=== PATIENT | female | born 1945 | race Caucasian/White ===

== ENCOUNTER → 2018-12-24 | Outpatient (CLI) | payer MEDICARE, OTHER ==
[~2018-12-24] MED LIST: ADV250/50 INH; ESOM40CA42 PO; FLUT1DIS28 IH; GAB300 PO; HYDR-4225 PO; IRON18TA2 PO; LISI-362 PO; LOR5 PO; LOR5/325 PO; METF-450 PO; MON4 PO; MONT10TA PO; OMEP40CA48 PO; ONDA4TAB PO; OXYC-865 PO; PER PO; ROPI0.5T25 PO; SIMV-49 PO; SUCR1TAB85 PO; VAL500 PO; WHEE1EAC19 MC
== END ==
LOC: RESP 07:18
PROVIDERS: ATTEND Family Medicine
DX: J98.4 Other disorders of lung (principal)
CPT/HCPCS: 94060; 94726; 94729

== ENCOUNTER → 2018-12-30 | Outpatient (CLI) | payer MEDICARE, OTHER ==
[~2018-12-30] MED LIST changes: +BARIUM SULFATE 176 GM BTL PO ONE; +BARIUM SULFATE 340 GM POWD ONE
--- NOTE | 2018-12-30 10:49 | RADIOLOGY IMAGING REPORT ---
FACILITY: [facility] PATIENT NAME: Renetta Clifton : 1945 MR: [id number] V: [id number] EXAM DATE: ORDERING PHYSICIAN: JOHN BOOTH TECHNOLOGIST: [place] [facility] [place] Renetta Clifton : 1945 Visit/Account:[id number] Date of Sevice: 12/30/2018 EXAMINATION: Upper GI HISTORY: Chronic sinusitis, cough, GERD. COMPARISON: CT abdomen and pelvis from 12/11/2015. TECHNIQUE: Thick and thin liquid barium was given orally and multiple fluoroscopic images were obtain ed. FLUOROSCOPY TIME: 1.8 minutes. DOSE: DAP was 1006.82 microGy*m2. FINDINGS: [employer]st image demonstrates levoscoliosis and degenerative changes of the lumbar spine. Bowel gas is pr esent in nondistended loops of small and large bowel with a moderate amount of stool in the colon. Peristalsis: Normal. Esophagus: Normal in contour and caliber without irregularity. Reflux: There is a large amount of reflux intermittently throughout the examination, with a thick col umn of barium to the upper esophagus. Barium tablet: A 13 mm Barium tablet was given which passed without problem. Stomach: There is moderate to large sliding hiatal hernia. Otherwise normal in contour and axis. No rugal fold thickening. Duodenum: Duodenal bulb is normal. Normally positioned ligament of Treitz. Small duodenal diverticu lum from the 3rd portion of the duodenum. IMPRESSION: 1. Moderate to large sliding hiatal hernia. 2. Large amount of gastroesophageal reflux to the upper esophagus. 3. Small duodenal diverticulum. Report Dictated By: Mago Wellington MD at 12/30/2018 10:40 AM Report E-Signed By: Mago Wellington MD at 12/30/2018 10:45 AM WSN:AMICIVN
--- NOTE | 2018-12-30 10:55 | RADIOLOGY IMAGING REPORT ---
FACILITY: [facility] [place] PATIENT NAME: Renetta Clifton : 1945 MR: [id number] V: [id number] EXAM DATE: ORDERING PHYSICIAN: JOHN BOOTH TECHNOLOGIST: Location: [facility] Patient: Renetta Clifton : 1945 Visit/Account:[id number] Date of Sevice: 12/30/2018 EXAMINATION: CT sinus without IV contrast HISTORY: Chronic sinusitis. COMPARISON: None. TECHNIQUE: Contiguous axial images were obtained through the paranasal sinuses without intravenous c ontrast administration. Coronal and sagittal reformatted images were obtained from the axial source d pablo. One of the following dose optimization techniques was utilized in the performance of this exam: Autom ated exposure control; adjustment of the mA and/or kV according to the patient's size; or use of an i terative reconstruction technique. Specific details can be referenced in the facility's radiology C T exam operational policy. FINDINGS: Maxillary sinuses: Minimal mucosal thickening in the bilateral inferior maxillary sinuses. Frontal sinuses: Negative. Ethmoid air cells: Minimal mucosal thickening in the bilateral ethmoid air cells. Sphenoid sinuses: The left sphenoid sinus is larger than the right which is a normal variant. The sp henoid sinuses are clear. Ostiomeatal units: Patent. Nasal septum/nasal cavity: Mild nasal septal deviation to the left with a small bone spur projecting laterally. No significant narrowing of the nasal cavity. 1.5 cm uncomplicated right julianna bullosa. Orbits: Negative. Visualized intracranial contents/soft tissues: Negative. TMJs: Negative. IMPRESSION: 1. Mild nonobstructive inflammation of the bilateral ethmoid air cells and maxillary sinuses. 2. Nasal septal deviation to the left with a bone spur projecting laterally, without significant jesus rowing of the nasal cavity. 3. 1.5 cm uncomplicated right julianna bullosa. Report Dictated By: Mago Wellington MD at 12/30/2018 10:48 AM Report E-Signed By: Mago Wellington MD at 12/30/2018 10:51 AM WSN:AMICIVN
== END ==
LOC: CT 00:43
PROVIDERS: ATTEND Family Medicine
DX: J34.2 Deviated nasal septum (principal); J34.89 Other specified disorders of nose and nasal sinuses; K21.9 Gastro-esophageal reflux disease without esophagitis; K44.9 Diaphragmatic hernia without obstruction or gangrene; K57.10 Diverticulosis of small intestine without perforation or abscess without bleeding
CPT/HCPCS: 70486; 74240

== ENCOUNTER 2019-04-23 09:22 | Emergency (ER) | payer MEDICARE, OTHER ==
[~2019-04-23 09:22] MED LIST changes: -BARIUM SULFATE 176 GM BTL PO ONE; -BARIUM SULFATE 340 GM POWD ONE
--- NOTE | 2019-04-23 09:24 | ER Report ---
History and Physical Time Seen By MD: 09:20 HPI/ROS CHIEF COMPLAINT: Back pain postop HISTORY OF PRESENT ILLNESS: Patient is a 73-year-old female here with complaints of mid thoracic back pain which is been present since her hiatal hernia repair surgery in February acutely worsening over the past 10 days. Patient reports that the pain is constant, worse on the left side that wraps around to the right as well. Patient reports that [id number] analgesics have not been alleviating her pain. Patient is afebrile, hemodynamically stable at time of evaluation. REVIEW OF SYSTEMS: Constitutional: No fever, no chills. Eyes: No discharge. ENT: No sore throat. Cardiovascular: No chest pain, no palpitations. Respiratory: No cough, no shortness of breath. Gastrointestinal: No abdominal pain, no vomiting. Genitourinary: No hematuria. Musculoskeletal: + Mid thoracic back pain, worse on the left side. Skin: No rashes. Neurological: No headache. Allergies: Coded Allergies: Sulfa (Sulfonamide Antibiotics) (Verified Allergy, Intermediate, RASH, 04/23/19) Shellfish (Verified Adverse Reaction, Intermediate, VOMITING, 04/23/19) Home Meds Active Scripts Ondansetron (ZOFRAN ODT) 4 Mg Tab.rapdis, 4 MG PO every 6 hours for Nausea, #10 TAB TAKE 1 TABLET BY MOUTH EVERY 12 HOURS Prov:CARRINGTON ARREAGA MD 12/12/15 Reported Medications Metformin Hcl (METFORMIN HCL) 500 Mg Tablet, 50 MG PO DAILY, TAB 01/14/16 Lisinopril (LISINOPRIL) 10 Mg Tablet, 10 MG PO QDAY, TAB 01/14/16 Iron (IRON) 18 Mg Tablet, 27 MG PO BID 01/14/16 Sucralfate (CARAFATE) 1 Gm Tablet, 1 GM PO QID 01/14/16 Omeprazole (OMEPRAZOLE) 40 Mg Capsule.dr, 40 MG PO QDAY, CAP 01/14/16 Montelukast Sodium (SINGULAIR) 10 Mg Tablet, 1 TAB PO QDAY, TAB 12/11/15 Simvastatin (SIMVASTATIN) 20 Mg Tablet, 20 MG PO HS, TAB 12/11/15 Fluticasone/Salmeterol (ADVAIR 250-50 DISKUS) 1 Each Disk.w.dev, 1 EACH IH 12/11/15 Ropinirole Hcl (ROPINIROLE HCL) 0.5 Mg Tablet, 1 MG PO TID 12/11/15 Discontinued Reported Medications Hydroxyzine Hcl (HYDROXYZINE HCL) 25 Mg Tablet, 50 MG PO PRN PRN for ITCHING 12/11/15 Discontinued Scripts Wheelchair (WHEELCHAIR) 1 Each Each, EACH , #1 Prov:BRII ALANIZ [facility] 03/31/17 Oxycodone Hcl/Acetaminophen (PERCOCET 5-325 MG TABLET) 1 Each Tablet, 1 EACH PO Q4-6H PRN for PAIN, #20 TAB Prov:BRII ALANIZ [facility] 03/31/17 Hx Smoking: No Smoking Status: Never Smoker Exposure to Second Hand Smoke?: No Hx Substance Use Disorder: No Hx Alcohol Use: No Constitutional Vital Sign - Last 24 Hours 04/23/19 09:30 Temp 97.9 Pulse 76 Resp 18 B/P (MAP) 184/99 Pulse Ox 94 Physical Exam General Appearance: The patient is alert, has no immediate need for airway protection and no signs of toxicity. No acute distress Eyes: Pupils equal and round no pallor or injection. ENT, Mouth: Mucous membranes are moist. Respiratory: There are no retractions, lungs are clear to auscultation. Cardiovascular: Regular rate and rhythm. Gastrointestinal: Abdomen is soft and non tender, no masses, bowel sounds normal. Neurological: No focal neurological deficits, cranial nerves intact Skin: Warm and dry, no rashes. Musculoskeletal: Neck is supple non tender. Extremities are nontender, nonswollen and have full range of motion. DIFFERENTIAL DIAGNOSIS: After history and physical exam differential diagnosis was considered for back pain including but not limited to muscular pain, herni ated disc, spine fracture, intra-abdominal causes, myocardial ischemia, pericarditis pulmonary embolus, chest wall pain, pleural inflammation and pulmonary infectious causes. Medical Decision Making Data Points Result Diagram: 04/23/19 0950 04/23/19 0950 Laboratory Hematology Test 04/23/19 09:50 White Blood Count 5.0 k/uL (4.5-11.0) Red Blood Count 5.16 M/uL (4.17-5.56) Hemoglobin 11.8 g/dL (12.0-16.0) L Hematocrit 36.3 % (34.0-47.0) Mean Corpuscular Volume 70.5 fL (80.0-96.0) L Mean Corpuscular Hemoglobin 23.0 pg (26.0-33.0) L Mean Corpuscular Hemoglobin Concent 32.6 g/dL (32.0-36.0) Red Cell Distribution Width 21.7 % (11.5-14.5) H Platelet Count 336 K/uL (150-450) Mean Platelet Volume 8.4 fL (7.2-11.1) Neutrophils (%) (Auto) 67.7 % (39.4-72.5) Lymphocytes (%) (Auto) 18.9 % (17.6-49.6) Monocytes (%) (Auto) 8.8 % (4.1-12.4) Eosinophils (%) (Auto) 3.8 % (0.4-6.7) Basophils (%) (Auto) 0.8 % (0.3-1.4) Nucleated RBC Relative Count (auto) 0.0 /100WBC Neutrophils # (Auto) 3.4 K/uL (2.0-7.4) Lymphocytes # (Auto) 0.9 K/uL (1.3-3.6) L Monocytes # (Auto) 0.4 K/uL (0.3-1.0) Eosinophils # (Auto) 0.2 K/uL (0.0-0.5) Basophils # (Auto) 0.0 K/uL (0.0-0.1) Nucleated RBC Absolute Count (auto) 0.00 K/uL Peripheral Blood Smear No Y/N Chemistry Test 04/23/19 09:50 Sodium Level 135 mmol/L (137-145) Potassium Level 4.1 mmol/L (3.5-5.0) Chloride Level 101 mmol/L (98-107) Carbon Dioxide Level 27 mmol/L (22-31) Blood Urea Nitrogen 11 mg/dl (7-18) Creatinine 0.60 mg/dl (0.52-1.04) Glomerular Filtration Rate Calc > 60.0 Random Glucose 116 mg/dl (75-110) Calcium Level 9.7 mg/dl (8.4-10.2) Total Bilirubin 0.4 mg/dl (0.2-1.3) Aspartate Amino Transf (AST/SGOT) 28 U/L (0-35) Alanine Aminotransferase (ALT/SGPT) 31 U/L (0-56) Alkaline Phosphatase 69 U/L (0-126) Troponin I < 0.012 ng/ml Total Protein 6.6 g/dl (6.3-8.2) Albumin 4.0 g/dl (3.5-5.0) EKG/Imaging EKG Interpretation PATIENT NAME: LAW NGO : [id number] MR: [id number] V: [id number] EXAM DATE: ORDERING PHYSICIAN: DANNY GRULLON TECHNOLOGIST: DAVID Test Reason : Blood Pressure : / mmHG Vent. Rate : 071 BPM Atrial Rate : 071 BPM P-R Int : 122 ms QRS Dur : 072 ms QT Int : 400 ms P-R-T Axes : 033 086 023 degrees QTc Int : 434 ms Normal sinus rhythm Normal ECG No previous ECGs available Referred By: Confirmed By: Imaging PATIENT NAME: Law Ngo : 1945 MR: [id number] V: [id number] EXAM DATE: [id number] ORDERING PHYSICIAN: DANNY GRULLON TECHNOLOGIST: Location: [facility] Patient: Law Ngo : 1945 Visit/Account:[id number] Date of Sevice: 04/23/2019 CT CTA CHEST W & W/O CON HISTORY: , Hernia surgery in February, back pain ever since increasing in severity ADDITIONAL HISTORY: None. TECHNIQUE: CTA chest with intravenous contrast. Axial imaging acquired following administration of IV contrast timed for maximum opacification of the pulmonary arterial vasculature. Slab 3-D MIP reconstructed images were also created for further evaluation and interpretation. Reconstruction of the source data set includes multiplanar 2-D in the sagittal and coronal planes and 3-D reconstructed coronal slab MIP series. 3-D images were created by the technologist.Dose Lowering Technique One of the following dose optimization techniques was utilized in the performance of this exam: Automated exposure control; adjustment of the mA and/or kV according to the patient's size; or use of an iterative reconstruction technique. Specific details can be referenced in the facility's radiology CT exam operational policy. CONTRAST: 75 mL Isovue-370 COMPARISON: None. FINDINGS: Lungs/pleura: Linear stranding in the inferior right middle lobe and lingula and inferior lower lobes may represent scarring versus atelectasis. There is a 3 mm noncalcified nodule posterior medial aspect the right lower lobe best appreciated on image 80 of series 5 Heart/vessels: There is no evidence of pulmonary emboli Mediastinum/lymph nodes: Negative. Visualized upper abdomen: Negative. Bones/soft tissues: Spondylotic changes of the thoracic spine. There are moderate degenerative changes also noted at the sternal angle. There are severe degenerative changes of the right shoulder joint Additional findings: None IMPRESSION: No evidence of pulmonary emboli Linear stranding in the right middle lobe lingula and lung bases may represent scarring versus atelectasis 3 mm noncalcified nodule right lower lobe FLEISCH[employer]ET[employer] FOLLOW-UP GUIDELINES FOR NEWLY DETECTED INCIDENTAL NODULES IN PERSONS 35 YEARS OF AGE OR OLDER. *These recommendations do NOT apply to lung cancer screening, patients with immunosuppression or patients with a known primary malignancy. SOLITARY SOLID NODULE If nodule size is < 6 mm: * Low risk patient ? No routine follow-up. * High risk patient ? Optional CT at 12 months. If nodule size is 6-8 mm: * Low risk patient ? CT at 6-12 months, then consider CT at 18-24 months if no change. * High risk patient ? CT at 6-12 months, then CT at 18-24 months if no change. If nodule size is > 8 mm: * Low risk patient ? Consider CT at 3, 9 and 24 months (if no change), PET/CT, tissue sampling or a combination thereof. * High risk patient ? Consider CT at 3, 9 and 24 months (if no change), PET/CT, tissue sampling, or a combination thereof. LOW RISK PATIENT: Minimal or absent history of tobacco use and of other known risk factors. HIGH RISK PATIENT: Tobacco use, family history of lung cancer, upper pulmonary lobe location of nodule, presence of emphysema, pulmonary fibrosis, older age. MacYaimahojustin H, Naesdras DP, Goo JM, et al. Guidelines for Management of Incidental Pulmonary Nodules Detected on CT Images: From the Fleischner Society 2017. Radiology. [facility] Report Dictated By: Rufina Marin MD at 04/23/2019 10:52 AM Report E-Signed By: Rufina Marin MD at 04/23/2019 10:58 AM WSN:FOREST ED Course/Re-evaluation ED Course Patient is a 73-year-old female here with complaints of ongoing mid thoracic back pain since her surgical operation for hiatal hernia repair back in February. Over the past 10 days she reports worsening pain prompting evaluation today. CT imaging of the chest showed no acute pulmonary process. Labs are unremarkable, troponin was negative. Patient was given muscle relaxers and outpatient analgesics. Return precautions provided. Close PCP follow-up recommended Decision to Disposition Date: Apr 23, 2019 Decision to Disposition Time: 11:08 Depart Departure Latest Vital Signs Vital Signs Date Time Temp Pulse Resp B/P (MAP) Pulse Ox O2 Delivery O2 Flow Rate FiO2 04/23/19 09:30 97.9 76 18 184/99 94 Impression: Primary Impression: Back pain Condition: Improved Disposition: HOME OR SELF-CARE Referrals: SIL NAGEL (PCP) New Scripts Tramadol Hcl (TRAMADOL HCL) 50 Mg Tablet 50 MG PO Q6H PRN for PAIN, #12 TAB 0 Refills Prov: DANNY GRULLON DO 04/23/19 Cyclobenzaprine Hcl (CYCLOBENZAPRINE HCL) 10 Mg Tablet 10 MG PO Q8H PRN for MUSCLE SPASMS, #20 TAB 0 Refills Prov: DANNY GRULLON DO 04/23/19 Patient Instructions: Back Pain (ED) Additional Instructions: Please drink plenty of water. You may take tramadol 1 tablet every 6-8 hours as needed, Flexeril 1 tablet every 6-8 hours as needed for muscle relaxant. Please return promptly if you develop worsening pain, shortness breath, fevers or chills DANNY GRULLON DO Apr 23, 2019 09:24
[2019-04-23] MEDS ORDERED: KETOROLAC 30 MG/ML VIAL IVP ONE (09:45)
[2019-04-23] MEDS ORDERED: IOPAMIDOL 76% 100 ML INFUS BTL 100 ML ONE (09:57)
[2019-04-23] MEDS ORDERED: NS(*) 0.9% 50 ML BAG 50 ML ONE (09:58)
--- NOTE | 2019-04-23 10:02 | EKG ---
FACILITY: [facility] PATIENT NAME: LAW NGO : [id number] MR: [id number] V: [id number] EXAM DATE: ORDERING PHYSICIAN: DANNY GRULLON TECHNOLOGIST: DAVID Hightower Reason : Blood Pressure : / mmHG Vent. Rate : 071 BPM Atrial Rate : 071 BPM P-R Int : 122 ms QRS Dur : 072 ms QT Int : 400 ms P-R-T Axes : 033 086 023 degrees QTc Int : 434 ms Sinus rhythm Nonspecific T wave findings in anterior leads No previous ECGs available Confirmed by MARLO LIRA ([id number]) on 04/23/2019 1:29:34 PM Referred By: Confirmed By:MARLO LIRA
[2019-04-23 10:19] LABS: PLATELET COUNT, AUTOMATED 336 K/uL (150-450)
[2019-04-23 11:00] VITALS: BP 177/88
--- NOTE | 2019-04-23 11:05 | RADIOLOGY IMAGING REPORT ---
FACILITY: [facility] PATIENT NAME: Renetta Clifton : 1945 MR: [id number] V: [id number] EXAM DATE: ORDERING PHYSICIAN: DANYN GRULLON TECHNOLOGIST: [place] [facility] [place]: Renetta Clifton : 1945 Visit/Account:[id number] Date of Sevice: 04/23/2019 CT CTA CHEST W & W/O CON HISTORY: , Hernia surgery in February, back pain ever since increasing in severity ADDITIONAL HISTORY: None. TECHNIQUE: CTA chest with intravenous contrast. Axial imaging acquired following administration of IV contrast timed for maximum opacification of the pulmonary arterial vasculature. Slab 3-D MIP bridgett nstructed images were also created for further evaluation and interpretation. Reconstruction of the s [facility] data set includes multiplanar 2-D in the sagittal and coronal planes and 3-D reconstructed margaret nal slab MIP series. 3-D images were created by the technologist.Dose Lowering Technique One of the following dose optimization techniques was utilized in the performance of this exam: Autom ated exposure control; adjustment of the mA and/or kV according to the patient's size; or use of an i terative reconstruction technique. Specific details can be referenced in the facility's radiology C T exam operational policy. CONTRAST: 75 mL Isovue-370 COMPARISON: None. FINDINGS: Lungs/pleura: Linear stranding in the inferior right middle lobe and lingula and inferior lower lobe s may represent scarring versus atelectasis. There is a 3 mm noncalcified nodule posterior medial as pect the right lower lobe best appreciated on image 80 of series 5 Heart/vessels: There is no evidence of pulmonary emboli Mediastinum/lymph nodes: Negative. Visualized upper abdomen: Negative. Bones/soft tissues: Spondylotic changes of the thoracic spine. There are moderate degenerative grimes ges also noted at the sternal angle. There are severe degenerative changes of the right shoulder nancy nt Additional findings: None IMPRESSION: No evidence of pulmonary emboli Linear stranding in the right middle lobe lingula and lung bases may represent scarring versus atelec tasis 3 mm noncalcified nodule right lower lobe FLE[employer] FOLLOW-UP GUIDELINES FOR NEWLY DETECTED INCIDENTAL NODULES IN PERSONS 35 YEARS OF AGE OR OLDER. *These recommendations do NOT apply to lung cancer screening, patients with immunosuppression or daniele ents with a known primary malignancy. SOLITARY SOLID NODULE If nodule size is < 6 mm: * Low risk patient ? No routine follow-up. * High risk patient ? Optional CT at 12 months. If nodule size is 6-8 mm: * Low risk patient ? CT at 6-12 months, then consider CT at 18-24 months if no change. * High risk patient ? CT at 6-12 months, then CT at 18-24 months if no change. If nodule size is > 8 mm: * Low risk patient ? Consider CT at 3, 9 and 24 months (if no change), PET/CT, tissue sampling or a combination thereof. * High risk patient ? Consider CT at 3, 9 and 24 months (if no change), PET/CT, tissue sampling, or a combination thereof. LOW RISK PATIENT: Minimal or absent history of tobacco use and of other known risk factors. HIGH RISK PATIENT: Tobacco use, family history of lung cancer, upper pulmonary lobe location of nodul e, presence of emphysema, pulmonary fibrosis, older age. Oscar H, Bacilio DP, Chioma CAMPA, et al. Guidelines for Management of Incidental Pulmonary Nodules Dete cted on CT Images: From the Fleischner Society 2017. Radiology. [facility] Report Dictated By: Rufina Marin MD at 04/23/2019 10:52 AM Report E-Signed By: Rufina Marin MD at 04/23/2019 10:58 AM LETAN:AMICIVDank
[2019-04-23] MEDS ORDERED: CYCL10TA29 PO (11:13)
[2019-04-23] MEDS ORDERED: TRAM-420 PO (11:13)
== END 2019-04-23 11:25 | disposition home or self-care (01) ==
LOC: ER 09:30
DX: M54.6 Pain in thoracic spine (principal)
CPT/HCPCS: 71275; 84484; 85025; 93005; 96374; 99284; J1885; J7050; Q9967; 82040; 82247; 82310; 82374; 82435; 82565; 82947; 84075; 84132; 84155; 84295; 84450; 84460; 84520